=== PATIENT | male | born 1950 | race Caucasian/White ===

== ENCOUNTER 2017-05-08 00:19 | Emergency (ER) | payer OTHER ==
[~2017-05-08] VITALS: Ht 177.8 cm; Wt 60.7 kg
[~2017-05-08 00:19] MED LIST: ASPI81 PO; ERYT.5%O LEFT EYE; ZITH250T PO
[2017-05-08 00:24] VITALS: PULSE 88; RESP 16; TEMP 97.6; O2SAT 95
[2017-05-08 00:34] VITALS: BP 212/105; PULSE 81; RESP 30; O2SAT 97
[2017-05-08 00:38] VITALS: RESP 18; O2SAT 98
[2017-05-08] MEDS ORDERED: predniSONE 20 MG TAB PO ONE (00:45)
--- NOTE | 2017-05-08 00:53 | PD ---
HPI Chief Complaint: Respiratory Symptoms Time Seen by Provider: 00:44 Travel History International Travel<30 days: No Contact w/Intl Traveler<30days: No Traveled to known affect area: No History of Present Illness HPI The patient is a 66-year-old male that has a history of COPD and continued tobacco abuse at one pack a day who complains of shortness of breath for 3 days , particularly at night. He denies any fever. He has a nonproductive cough. He does not have a nebulizer machine at home. PFS Past Medical History Hypertension: Yes Medical other: Yes (TIA) Tetanus Vaccination: Unknown Influenza Vaccination: No Past Surgical History Oral Surgery: Yes (WISDOM TOOTH 1979) Social History Alcohol Use: No Tobacco Use: Yes (1 PPD) Substance Use: No Allergies-Medications (Allergen,Severity, Reaction): Coded Allergies: No Known Allergies (Unverified , 05/08/17) Reported Meds & Prescriptions Reported Meds & Active Scripts Active Reported Lovastatin 10 Mg Tab 10 Mg PO DAILY Aspirin 81 Mg Chew 81 Mg CHEW DAILY Lisinopril 20 Mg Tab 20 Mg PO DAILY Review of Systems Except as stated in HPI: all other systems reviewed are Neg Physical Exam Narrative GENERAL: The patient is alert, oriented 3 in minimal respiratory distress. His vital signs show a chest x-ray symmetry on room air from 95-98% and his blood pressure is 212/105 and respiratory rate is 30. The rest the vital signs are normal. SKIN: Focused skin assessment warm/dry. HEAD: Atraumatic. Normocephalic. EYES: Pupils equal and round. No scleral icterus. No injection or drainage. ENT: No nasal bleeding or discharge. Mucous membranes pink and moist. NECK: Trachea midline. No JVD. CARDIOVASCULAR: Regular rate and rhythm. No murmur appreciated. RESPIRATORY: No accessory muscle use. Scattered wheezes are heard in all lung maxwell on expiration. Breath sounds equal bilaterally but slightly diminished. GASTROINTESTINAL: Abdomen soft, non-tender, nondistended. Hepatic and splenic margins not palpable. MUSCULOSKELETAL: No obvious deformities. No clubbing. No cyanosis. No edema. NEUROLOGICAL: Awake and alert. No obvious cranial nerve deficits. Motor grossly within normal limits. Normal speech. PSYCHIATRIC: Appropriate mood and affect; insight and judgment normal. Data Data Last Documented VS Vital Signs Date Time Temp Pulse Resp B/P (MAP) Pulse Ox O2 Delivery O2 Flow Rate FiO2 05/08/17 01:35 180/79 (112) 05/08/17 01:22 68 18 99 Room Air 05/08/17 00:38 2.00 05/08/17 00:24 97.6 Orders Orders Chest, Pa & Lat (05/08/17 00:44) Albuterol-Ipratropium Neb (Duoneb Neb) (05/08/17 00:45) Prednisone (Deltasone) (05/08/17 00:45) Albuterol-Ipratropium Neb (Duoneb Neb) (05/08/17 02:15) MDM Medical Decision Making Medical Screen Exam Complete: Yes Emergency Medical Condition: Yes Medical Record Reviewed: Yes Interpretation(s) The chest x-ray shows COPD but no acute cardiopulmonary disease. Differential Diagnosis COPD with acute exacerbation, pneumonia, bronchitis, hypoxemia, continued tobacco abuse Narrative Course The patient has COPD with acute exacerbation. There is no clinical nor radiographic evidence of pneumonia. He cleared up completely with the wheezing , it is now 0220. He promises he will stop tobacco use. Procedures EKG Prior to Arrival: No EKG Not Completed: EKG Not Medically Necessary Diagnosis Primary Impression: COPD with acute exacerbation Additional Impression: Tobacco abuse Additional Instructions: As we discussed, the best thing you can do for yourself is quit smoking. Follow up with your primary care physician this week. Disposition: 01 DISCHARGE HOME Condition: Stable Tunde Del Rio MD May 08, 2017 00:52
[2017-05-08] MEDS: RESP: ALBUTEROL 2.5 MG/IPRATROPIUM 0.5 MG NEB (SCH) INH ×3 (00:56→01:27)
[2017-05-08] MEDS ORDERED: LOVA10TA PO (01:09)
[2017-05-08] MEDS ORDERED: ASPI81CH CHEW (01:09)
[2017-05-08] MEDS ORDERED: LISI-515 PO (01:09)
[2017-05-08 01:22] VITALS: BP 199/88; PULSE 68; RESP 18; O2SAT 99
[2017-05-08 01:35] VITALS: BP 180/79
[2017-05-08] MEDS ORDERED: RESP: ALBUTEROL 2.5 MG/IPRATROPIUM 0.5 MG NEB (SCH) INH ONE (02:15)
--- NOTE | 2017-05-08 02:17 | RADRPT ---
EXAM DATE/TIME: 05/08/2017 01:22 [facility] COMPARISON: No previous studies available for comparison. INDICATIONS : Short of breath. MEDICAL HISTORY : None. SURGICAL HISTORY : None. ENCOUNTER: Initial ACUITY: 1 day PAIN SCORE: 6/10 LOCATION: Bilateral chest FINDINGS: The cardiac silhouette is normal in transverse diameter. There is prominence of the aortic knob is wi th calcification characteristic of atherosclerotic vascular disease. The lungs are free of acute pare nchymal opacity. No effusions are identified. The background interstitium is prominent though this is likely chronic in nature. There are centrilobular emphysematous changes in both upper lobes. CONCLUSION: 1. Findings of COPD. No acute cardiopulmonary disease. Tomer Agrawal MD on May 08, 2017 at 2:13 Board Certified Radiologist. This report was verified electronically.
[2017-05-08] MEDS ORDERED: PRED50 PO (02:32)
[2017-05-08 02:33] VITALS: BP 156/76
[2017-05-08] MEDS ORDERED: ALBUAER3 INH (02:36)
== END 2017-05-08 02:39 | disposition home or self-care (01) ==
LOC: PHED 00:19
DX: J44.1 Chronic obstructive pulmonary disease with (acute) exacerbation (principal); F17.200 Nicotine dependence, unspecified, uncomplicated; I10 Essential (primary) hypertension; Z87.09 Personal history of other diseases of the respiratory system; Z86.79 Personal history of other diseases of the circulatory system
CPT/HCPCS: 71020; 94640; 94664; 99285; J7512

== ENCOUNTER 2017-08-31 02:27 | Emergency (ER) | payer OTHER ==
[~2017-08-31] VITALS: Ht 177.8 cm; Wt 55.4 kg
[~2017-08-31 02:27] MED LIST changes: +ALBUAER3 INH; +ASPI-516 CHEW; -ASPI81 PO; -ERYT.5%O LEFT EYE; +LISI-515 PO; +LOVA10TA PO; +PRED50 PO; -ZITH250T PO
[2017-08-31 02:30] VITALS: BP 181/95; PULSE 98; RESP 18; TEMP 97.6; O2SAT 96
--- NOTE | 2017-08-31 04:48 | PD ---
HPI Chief Complaint: Anxiety Time Seen by Provider: 04:21 Travel History International Travel<30 days: No Contact w/Intl Traveler<30days: No Traveled to known affect area: No History of Present Illness HPI The patient is a 66-year-old male that was put on a tapered prednisone course of 10 mg were he takes prednisone tablets before breakfast, before lunch, at supper and at bedtime. He states the prednisone is making him hyped up to where he cannot sleep. He does not want to be put on sleeping pills. The patient is on a 60, 50, 40, 30, 20, 10 mg of prednisone tapering. He is now on day 3 taking 40 mg of prednisone. His lungs are clear despite continued tobacco abuse at one pack a day. He initially was put on the prednisone because of shortness of breath. He has no trouble with his lungs at this time. He denies any fever or cough. PFSH Past Medical History COPD: Yes Hypertension: Yes Tetanus Vaccination: Unknown Influenza Vaccination: No Past Surgical History Oral Surgery: Yes (WISDOM TOOTH 1978) Social History Alcohol Use: No Tobacco Use: Yes (1 PPD) Substance Use: No Allergies-Medications (Allergen,Severity, Reaction): Coded Allergies: No Known Allergies (Unverified , 05/08/17) Reported Meds & Prescriptions Reported Meds & Active Scripts Active Proair Hfa 8.5 GM Inh (Albuterol Sulfate) 90 Mcg/Act Aer 2 Puff INH Q4-6H PRN 108 mcg/actuation Prednisone 50 Mg Tab 50 Mg PO BID Reported Lovastatin 10 Mg Tab 10 Mg PO DAILY Aspirin 81 Mg Chew 81 Mg CHEW DAILY Lisinopril 20 Mg Tab 20 Mg PO DAILY Review of Systems Except as stated in HPI: all other systems reviewed are Neg Physical Exam Narrative GENERAL: Well-nourished, well-developed patient. SKIN: Focused skin assessment warm/dry. HEAD: Normocephalic. EYES: No scleral icterus. No injection or drainage. NECK: Supple, trachea midline. No JVD or lymphadenopathy. CARDIOVASCULAR: Regular rate and rhythm without murmurs, gallops, or rubs. RESPIRATORY: Breath sounds equal bilaterally. No accessory muscle use. Lungs are clear to auscultation bilaterally, there is absolutely no wheezing. GASTROINTESTINAL: Abdomen soft, non-tender, nondistended. MUSCULOSKELETAL: No cyanosis, or edema. BACK: Nontender without obvious deformity. No CVA tenderness. Data Data Last Documented VS Vital Signs Date Time Temp Pulse Resp B/P (MAP) Pulse Ox O2 Delivery O2 Flow Rate FiO2 08/31/17 02:30 97.6 98 18 181/95 (123) 96 MDM Medical Decision Making Medical Screen Exam Complete: Yes Emergency Medical Condition: Yes Medical Record Reviewed: Yes Differential Diagnosis Anxiety, medication side effect from prednisone, COPD Narrative Course The patient appears to have inability to sleep due to the prednisone. He does not want sleeping medications. We will move up the prednisone to include the before breakfast and before lunch dosing. Apparently, his lungs have responded well to the prednisone. The patient appears to have a steroid euphoria and cannot sleep. Diagnosis Primary Impression: Steroid euphoria Additional Instructions: Today, day 3 take 2 tablets before breakfast and 2 tablets before lunch. Day four take 2 tablets before breakfast and one tablet before lunch. day 5 to take one tablet a breakfast and one tablet at lunch. day 6 take one tablet at breakfast. If you start wheezing again you'll need to possibly go back to the original steroid regimen. Also, please quit smoking. Med/Other Pt SpecificInfo: Existing Med Changed Disposition: DISCHARGE HOME Condition: Stable Tunde Del Rio MD Aug 31, 2017 04:48
[2017-08-31 04:49] VITALS: BP 161/74
== END 2017-08-31 04:53 | disposition home or self-care (01) ==
LOC: PHED 02:27
DX: G47.09 Other insomnia (principal); I10 Essential (primary) hypertension; J44.9 Chronic obstructive pulmonary disease, unspecified; Z87.891 Personal history of nicotine dependence
CPT/HCPCS: 99281

== ENCOUNTER 2017-09-14 07:25 | Emergency (ER) | payer OTHER ==
[~2017-09-14] VITALS: Ht 177.8 cm; Wt 55.5 kg
[2017-09-14 07:30] VITALS: BP 244/105; PULSE 75; RESP 16; TEMP 97.2; O2SAT 98
--- NOTE | 2017-09-14 07:44 | PD ---
HPI Chief Complaint: Abnormal Results Time Seen by Provider: 07:42 Travel History International Travel<30 days: No Contact w/Intl Traveler<30days: No Traveled to known affect area: No History of Present Illness HPI Patient states that he is coming in primarily because his concern of his high blood pressure has been this way for the past 2 or so days now he is starting to notice the ringing in his ears. Patient states that he was given an additional blood pressure medication by Dr. Jose Ribeiro. However he is unaware of what it is and currently the pharmacy is closed and we are unable to contact to get further information. The patient is also stating that he believes this is occurring because of stress he is currently going through a divorce. Based on chart review I only see lisinopril listed however it is questionable if this is the only medication he is on or if that was adjusted or if lisinopril had another medication added to it. The patient himself states that he does not know his ignorant to those things and that his usually puts his medications in medication pillbox No known drug allergies Past medical history significant for hypertension COPD smoker of one pack per day. PFSH Past Medical History COPD: Yes Hypertension: Yes Past Surgical History Oral Surgery: Yes (WISDOM TOOTH 1978) Social History Alcohol Use: No Tobacco Use: Yes (1 PPD) Substance Use: No Allergies-Medications (Allergen,Severity, Reaction): Coded Allergies: No Known Allergies (Unverified Adverse Reaction, Unknown, 09/14/17) Reported Meds & Prescriptions Reported Meds & Active Scripts Active Reported Simvastatin 20 Mg Tab 20 Mg PO DAILY Amlodipine (Amlodipine Besylate) 2.5 Mg Tab 2.5 Mg PO DAILY Lovastatin 10 Mg Tab 10 Mg PO DAILY Aspirin 81 Mg Chew 162 Mg CHEW DAILY Lisinopril 20 Mg Tab 5 Mg PO DAILY Review of Systems Except as stated in HPI: all other systems reviewed are Neg General / Constitutional: No: Fever Eyes: No: Visual changes HENT: Positive: Other (A pounding sensation ringing in the ears type of sensation which he has noted is associated with high blood pressure) Cardiovascular: No: Chest Pain or Discomfort Respiratory: No: Shortness of Breath Gastrointestinal: No: Abdominal Pain Genitourinary: No: Dysuria Musculoskeletal: No: Pain Skin: No Rash Neurologic: No: Weakness Psychiatric: No: Depression Endocrine: No: Polydipsia Hematologic/Lymphatic: No: Easy Bruising Physical Exam Narrative GENERAL: SKIN: Warm and dry. HEAD: Atraumatic. Normocephalic. EYES: Pupils equal and round. No scleral icterus. No injection or drainage. ENT: No nasal bleeding or discharge. Mucous membranes pink and moist. NECK: Trachea midline. No JVD. CARDIOVASCULAR: Regular rate and rhythm. RESPIRATORY: No accessory muscle use. Clear to auscultation. Breath sounds equal bilaterally. GASTROINTESTINAL: Abdomen soft, non-tender, nondistended. MUSCULOSKELETAL: Extremities without clubbing, cyanosis, or edema. No obvious deformities. NEUROLOGICAL: Awake and alert. No obvious cranial nerve deficits. Motor grossly within normal limits. Five out of 5 muscle strength in the arms and legs. Normal speech. PSYCHIATRIC: Appropriate mood and affect; insight and judgment normal. Data Data Last Documented VS Vital Signs Date Time Temp Pulse Resp B/P (MAP) Pulse Ox O2 Delivery O2 Flow Rate FiO2 09/14/17 08:54 76 18 169/81 (110) 98 Room Air 09/14/17 07:30 97.2 Orders Orders Complete Blood Count With Diff (09/14/17 07:51) Comprehensive Metabolic Panel (09/14/17 07:51) B-Type Natriuretic Peptide (09/14/17 07:51) Prothrombin Time / Inr (Pt) (09/14/17 07:51) Act Partial Throm Time (Ptt) (09/14/17 07:51) Thyroid Stimulating Hormone (09/14/17 07:51) Chest, Pa & Lat (09/14/17 07:51) Ct Brain W/O Iv Contrast(Rout) (09/14/17 07:51) Hydralazine Inj (Apresoline Inj) (09/14/17 08:00) Labs Laboratory Tests Test 09/14/17 07:56 White Blood Count 6.2 TH/MM3 Red Blood Count 4.88 MIL/MM3 Hemoglobin 15.1 GM/DL Hematocrit 45.7 % Mean Corpuscular Volume 93.7 FL Mean Corpuscular Hemoglobin 31.0 PG Mean Corpuscular Hemoglobin Concent 33.1 % Red Cell Distribution Width 14.0 % Platelet Count 212 TH/MM3 Mean Platelet Volume 8.1 FL Neutrophils (%) (Auto) 53.0 % Lymphocytes (%) (Auto) 28.4 % Monocytes (%) (Auto) 14.2 % Eosinophils (%) (Auto) 2.7 % Basophils (%) (Auto) 1.7 % Neutrophils # (Auto) 3.2 TH/MM3 Lymphocytes # (Auto) 1.8 TH/MM3 Monocytes # (Auto) 0.9 TH/MM3 Eosinophils # (Auto) 0.2 TH/MM3 Basophils # (Auto) 0.1 TH/MM3 CBC Comment DIFF FINAL Differential Comment Prothrombin Time 11.0 SEC Prothromb Time International Ratio 1.1 RATIO Activated Partial Thromboplast Time 26.7 SEC Blood Urea Nitrogen 5 MG/DL Creatinine 0.66 MG/DL Random Glucose 106 MG/DL Total Protein 7.1 GM/DL Albumin 3.6 GM/DL Calcium Level 8.6 MG/DL Alkaline Phosphatase 86 U/L Aspartate Amino Transf (AST/SGOT) 18 U/L Alanine Aminotransferase (ALT/SGPT) 19 U/L Total Bilirubin 0.7 MG/DL Sodium Level 130 MEQ/L Potassium Level 3.4 MEQ/L Chloride Level 98 MEQ/L Carbon Dioxide Level 25.7 MEQ/L Anion Gap 6 MEQ/L Estimat Glomerular Filtration Rate 120 ML/MIN B-Type Natriuretic Peptide 25 PG/ML Thyroid Stimulating Hormone 3rd Gen 0.845 uIU/ML MDM Medical Decision Making Medical Screen Exam Complete: Yes Emergency Medical Condition: Yes Medical Record Reviewed: Yes Differential Diagnosis Hypertension, noncompliant versus accelerated hypertension versus renal failure Narrative Course Chest x-ray shows COPD changes but without any pneumonia or pleural effusions. CBC shows no evidence of leukocytosis no anemia normal platelet count without any shift. Coagulation profile is within normal limits CMP shows a very mild hyponatremia 130, however all other electrolytes are within normal limits, normal creatinine and GFR, normal liver function tests, normal beta natruretic peptide, and normal tSH CT head is negative for any intracranial hemorrhage After calling the patient's pharmacy discovered that the patient is on lisinopril 10 mg tablets that he takes half of it at the as well as he just got started yesterday order was placed for amlodipine 5 mg tablets to take half so the patient is not optimized on the either antihypertensive but is on a very low -dose. I am going to recommend that the patient contact his primary care and have his medications adjusted Diagnosis Primary Impression: Accelerated hypertension status post control Patient Instructions: Chronic Hypertension (ED), General Instructions Disposition: 01 DISCHARGE HOME Condition: Stable Syed Shoemaker MD Sep 14, 2017 07:44
[2017-09-14] MEDS ORDERED: B/P MED (07:49)
[2017-09-14] MEDS ORDERED: hydrALAZINE HCL 20 MG/ML VIAL IV PUSH ONE ×2 (08:00→10:00)
[2017-09-14 08:07] LABS: AUTOMATED NEUTROPHIL # 3.2 TH/MM3 (1.8-7.7); BASOPHIL # 0.1 TH/MM3 (0-0.2); BASOPHIL % 1.7 % (0.0-2.0); EOSINOPHIL # 0.2 TH/MM3 (0-0.4); EOSINOPHIL % 2.7 % (0.0-4.0); HEMATOCRIT 45.7 % (39.0-51.0); HEMOGLOBIN 15.1 GM/DL (13.0-17.0); LYMPH % 28.4 % (9.0-44.0); LYMPHOCYTE # 1.8 TH/MM3 (1.0-4.8); MEAN CELL VOLUME 93.7 FL (80.0-100.0); MEAN CORPUSCULAR HGB CONC 33.1 % (32.0-36.0); MEAN PLATELET VOLUME 8.1 FL (7.0-11.0); MONO % 14.2 % (0.0-8.0); MONOCYTE # 0.9 TH/MM3 (0-0.9); PLATELET COUNT 212 TH/MM3 (150-450); RED BLOOD COUNT 4.88 MIL/MM3 (4.50-5.90); WHITE BLOOD COUNT 6.2 TH/MM3 (4.0-11.0)
[2017-09-14 08:16] VITALS: BP 202/101; PULSE 70; RESP 16; O2SAT 98
[2017-09-14 08:22] LABS: CHLORIDE 98 MEQ/L (98-107); SODIUM (NA) 130 MEQ/L (136-145)
[2017-09-14 08:25] LABS: ALBUMIN 3.6 GM/DL (3.4-5.0); BICARBONATE 25.7 MEQ/L (21.0-32.0); BLOOD UREA NITROGEN 5 MG/DL (7-18); CALCIUM 8.6 MG/DL (8.5-10.1); GLUCOSE,RANDOM 106 MG/DL (74-106); INTERNATIONAL NORMALIZED RATIO 1.1 RATIO
[2017-09-14 08:28] LABS: ALT (GPT) 19 U/L (12-78); AST (GOT) 18 U/L (15-37)
[2017-09-14 08:29] LABS: CREATININE 0.66 MG/DL (0.60-1.30); GLOMERULAR FILTRATION RATE 120 ML/MIN (>89)
[2017-09-14 08:30] LABS: TOTAL BILIRUBIN ADULT 0.7 MG/DL (0.2-1.0); TOTAL PROTEIN 7.1 GM/DL (6.4-8.2)
[2017-09-14 08:31] LABS: ALKALINE PHOSPHATASE 86 U/L (45-117)
--- NOTE | 2017-09-14 08:38 | RADRPT ---
EXAM DATE/TIME: 09/14/2017 08:00 [facility] COMPARISON: CHEST PA & LAT, May 08, 2017, 1:22. INDICATIONS : High blood pressure. MEDICAL HISTORY : Hypercholesterolemia. Chronic obstructive pulmonary disease. Hypertension. Smoker. SURGICAL HISTORY : Right carotid. ENCOUNTER: Initial ACUITY: 1 day PAIN SCORE: 0/10 LOCATION: chest FINDINGS: PA and lateral views of the chest demonstrate the lungs to be symmetrically aerated without evidence of mass, infiltrate or effusion. The lungs are hyperinflated bilaterally. A stable small calcified gr anuloma within the left base. Cylindrical bronchiectasis is seen within the upper lobes bilaterally. The cardiomediastinal contours are unremarkable. Osseous structures are intact. CONCLUSION: 1. COPD and bronchiectatic change. 2. Left lower lobe granuloma. 3. No acute infiltrate or effusion. Jacky Morgan Jr., MD on September 14, 2017 at 8:35 Board Certified Radiologist. This report was verified electronically.
[2017-09-14 08:54] VITALS: BP 169/81; PULSE 76; RESP 18; O2SAT 98
[2017-09-14] MEDS ORDERED: AMLO2.5T PO (09:05)
[2017-09-14] MEDS ORDERED: SIMV20TA PO (09:05)
--- NOTE | 2017-09-14 09:13 | RADRPT ---
EXAM DATE/TIME: 09/14/2017 08:37 [facility] COMPARISON: No previous studies available for comparison. INDICATIONS : Hypertension for two days, ringing in ears. RADIATION DOSE: 57.70 CTDIvol (mGy) MEDICAL HISTORY : Hypertension. Chronic obstructive pulmonary disease. Hypercholesterolemia. SURGICAL HISTORY : Carotid endarterectomy. ENCOUNTER: Initial ACUITY: 2 days PAIN SCALE: 0/10 LOCATION: Bilateral cranial TECHNIQUE: Multiple contiguous axial images were obtained of the head. Using automated exposure control and adj ustment of the mA and/or kV according to patient size, radiation dose was kept as low as reasonably a chievable to obtain optimal diagnostic quality images. DICOM format image data is available electro nically for review and comparison. 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 The ventricles are normal for age. No evidence of midline shift, mass lesion, hemorrhage or acute infarction. No extra-axial fluid collections are se en. POSTERIOR FOSSA: The cerebellum and brainstem are intact. The 4th ventricle is midline. The cerebellopontine angle i s unremarkable. EXTRACRANIAL: The visualized portion of the orbits is intact. SKULL: The calvaria is intact. No evidence of skull fracture. CONCLUSION: No acute disease. Jacky Morgan Jr., MD on September 14, 2017 at 8:51 Board Certified Radiologist. This report was verified electronically.
[2017-09-14] MEDS ORDERED: cloNIDine HCL 0.1 MG TAB PO ONE (10:00)
[2017-09-14 10:05] VITALS: BP 188/78; PULSE 75; RESP 16; O2SAT 98
== END 2017-09-14 10:22 | disposition home or self-care (01) ==
LOC: PHED 07:25
DX: I10 Essential (primary) hypertension (principal); E78.00 Pure hypercholesterolemia, unspecified; J44.9 Chronic obstructive pulmonary disease, unspecified; F17.210 Nicotine dependence, cigarettes, uncomplicated; Z79.82 Long term (current) use of aspirin; Z79.899 Other long term (current) drug therapy
CPT/HCPCS: 70450; 71046; 80053; 83880; 84443; 85025; 85610; 85730; 96374; 99285; J0360